=== PATIENT | female | born 1950 | race Caucasian/White ===

== ENCOUNTER → 2020-05-02 | Outpatient (CLI) | payer MEDICARE ==
[2020-05-02 15:53] LABS: BASOPHILS % (AUTO) 1 % (0-10); EOSINOPHILS # (AUTO) 0.2 10^3/uL (0.0-0.3); EOSINOPHILS % (AUTO) 3 % (0-10); HEMATOCRIT 40 % (35-52); HEMOGLOBIN 13.2 g/dL (11.5-16.0); LYMPHOCYTES # (AUTO) 1.4 10^3/uL (1.0-4.0); LYMPHOCYTES % (AUTO) 21 % (12-44); MEAN CORPUSCULAR HEMOGLOBIN 28 pg (25-34); MEAN CORPUSCULAR HGB CONC 33 g/dL (32-36); MEAN CORPUSCULAR VOLUME 85 fL (80-99); MEAN PLATELET VOLUME 9.5 fL (9.0-12.2); MONOCYTES # (AUTO) 0.8 10^3/uL (0.0-1.0); MONOCYTES % (AUTO) 12 % (0-12); NEUTROPHILS # (AUTO) 4.4 10^3/uL (1.8-7.8); NEUTROPHILS % (AUTO) 64 % (42-75); PLATELET COUNT 259 10^3/uL (130-400); WHITE BLOOD COUNT 6.9 10^3/uL (4.3-11.0)
--- NOTE | 2020-05-02 15:56 | Diagnostic Imaging Report ---
INDICATION: Weakness and cough. TIME OF EXAM: 3:46 PM. COMPARISON: No prior studies are available for comparison. FINDINGS: The heart size is normal. The lungs are clear. No infiltrates are detected. No effusion or pneumothorax is identified. IMPRESSION: No acute cardiopulmonary process is detected. Dictated by: Dictated on workstation # [id number]
[2020-05-02 16:05] LABS: ALBUMIN 3.9 GM/DL (3.2-4.5)
[2020-05-02 16:06] LABS: CHLORIDE 96 MMOL/L (98-107); SODIUM 131 MMOL/L (135-145)
[2020-05-02 16:07] LABS: CALCIUM 9.3 MG/DL (8.5-10.1)
[2020-05-02 16:08] LABS: GLUCOSE 103 MG/DL (70-105); TOTAL PROTEIN 8.1 GM/DL (6.4-8.2)
[2020-05-02 16:09] LABS: CARBON DIOXIDE 27 MMOL/L (21-32)
[2020-05-02 16:10] LABS: BILIRUBIN,TOTAL 0.4 MG/DL (0.1-1.0)
[2020-05-02 16:11] LABS: ALKALINE PHOSPHATASE 83 U/L (40-136)
[2020-05-02 16:12] LABS: CREATININE SERUM 0.71 MG/DL (0.60-1.30); GFR ESTIMATED > 60
[2020-05-02 16:13] LABS: BUN/CREATININE RATIO 18
[2020-05-02 16:15] LABS: ALANINE AMINOTRANSFERASE 19 U/L (0-55); URIC ACID 3.3 MG/DL (2.6-7.2)
[2020-05-02 16:29] LABS: ERYTHROCYTE SEDIMENTATION RATE 65 MM/HR (0-30)
[2020-05-02 16:36] LABS: FREE T4 (FREE THYROXINE) 1.27 NG/DL (0.70-1.48)
== END ==
LOC: LAB 15:11
PROVIDERS: ATTEND Family Medicine
DX: E03.9 Hypothyroidism, unspecified (principal); M85.80 Other specified disorders of bone density and structure, unspecified site; R51.9 Headache, unspecified; H57.89 Other specified disorders of eye and adnexa; B99.9 Unspecified infectious disease; R05 Cough
CPT/HCPCS: 36415; 71046; 80053; 82306; 82784; 82785; 82787; 84439; 84443; 84550; 85025; 85379; 85652; 86060; 86141; 86235; 86431

== ENCOUNTER 2020-05-16 17:05 | Emergency (ER) | payer MEDICARE, OTHER ==
[~2020-05-16] VITALS: Ht 160 cm; Wt 50.0 kg
--- NOTE | 2020-05-16 17:38 | ED General ---
General Chief Complaint: General Problems/Pain Stated Complaint: BILAT EYE SWELLING/HEADACHE X 1 WEEK Nursing Triage Note: PT ARRIVES TO ER WITH C/O SEVERE HEADACHE THAT WON'T GO AWAY WITH ANY MEDICATION PREVIOUSLY PERSCRIBED. PT STATES THE HEADACHE USUALLY STARTS IN HER NECK AND ENDS UP HURTING IN THE FRONT OF HER HEAD. Nursing Sepsis Screen: No Definite Risk Source of Information: Patient Exam Limitations: No Limitations History of Present Illness Date Seen by Provider: May 16, 2020 Time Seen by Provider: 17:32 Initial Comments To ER with bilateral eye swelling and headaches. The swelling is actually better today than it has been for the past few days but she's been having headaches global in nature for several weeks. She is tender to touch over the temporal region bilaterally. She had some transient loss of vision in the right eye a few weeks ago. She subsequent relief followed up with Dr. Guadalupe yesterday and was told everything looked normal she states. Her vision is now completely back to normal she states. She has also been seen by Dr. WEBBER and SANGITA Reynolds APRN out of a health clinic in [place]. Currently she is on Zofran, Imitrex, ketorolac prescribed last week for her headaches. She has had some intermittent headaches, swelling of the skin on her forehead, erythema of the cheeks since December of this year. Timing/Duration: Getting Worse, Intermittent Severity: Moderate Associated Systoms: Headaches, Nausea/Vomiting Allergies and Home Medications Allergies Coded Allergies: aspirin (Unverified Allergy, Intermediate, Vomiting, 05/16/20) codeine (Unverified Allergy, Intermediate, Vomiting, 05/16/20) Home Medications Hydroxychloroquine Sulfate 200 Mg Tablet, 200 MG PO DAILY Prescribed by: ADI BATES on 05/16/201916 Pantoprazole Sodium 40 Mg Tablet.dr, 40 MG PO DAILY Prescribed by: ADI BATES on 05/16/201916 Prednisone 10 Mg Tab.ds.pk, 10 MG PO DAILY Take 5 tabs(50mg)daily on day one,decrease by 1 tab(10MG)daily. Prescribed by: ADI BATES on 05/16/201916 Patient Home Medication List Home Medication List Reviewed: Yes Review of Systems Review of Systems Constitutional: see HPI EENTM: see HPI Respiratory: no symptoms reported Cardiovascular: no symptoms reported Genitourinary: no symptoms reported Musculoskeletal: no symptoms reported Skin: see HPI, rash Psychiatric/Neurological: No Symptoms Reported Hematologic/Lymphatic: No Symptoms Reported Past Ctursfp-Trblqf-Klosef Hx Patient Social History Recent Foreign Travel: No Contact w/Someone Who Travel: No Recent Infectious Disease Expo: No Physical Exam Vital Signs Vital Signs - First Documented 05/16/20 17:08 Temp 37.0 Pulse 93 Resp 17 B/P (MAP) 181/108 (132) Pulse Ox 98 O2 Delivery Room Air Capillary Refill : Less Than 3 Seconds Height, Weight, BMI Height: '" Weight: lbs. oz. kg; 19.00 BMI Method: General Appearance: No Apparent Distress, WD/WN Eyes: Bilateral Eye Normal Inspection, Bilateral Eye PERRL, Bilateral Eye EOMI HEENT: PERRL/EOMI, TMs Normal Respiratory: Lungs Clear, Normal Breath Sounds, No Accessory Muscle Use, No Respiratory Distress Cardiovascular: Regular Rate, Rhythm, Normal Peripheral Pulses Gastrointestinal: Non Tender, Soft Extremity: Normal Capillary Refill, Normal Inspection, Other (purplish discoloration of fingers consistent with raynauds. ) Neurologic/Psychiatric: Alert, Oriented x3 Skin: Normal Color, Warm/Dry, Other Progress/Results/Core Measures Suspected Sepsis Recent Fever Within 48 Hours: No Infection Criteria Present: None New/Unexplained Altered Menta: No Sepsis Screen: No Definite Risk SIRS Temperature: Pulse: 93 Respiratory Rate: 17 Laboratory Tests 05/16/20 17:40: White Blood Count 7.3 Blood Pressure 181 /108 Mean: 132 Laboratory Tests 05/16/20 17:40: Creatinine 0.67, Platelet Count 304, Total Bilirubin 0.5 Results/Orders Lab Results Laboratory Tests Test 05/16/20 17:40 Range/Units White Blood Count 7.3 4.3-11.0 10^3/uL Red Blood Count 4.86 3.80-5.11 10^6/uL Hemoglobin 13.4 11.5-16.0 g/dL Hematocrit 41 35-52 % Mean Corpuscular Volume 83 80-99 fL Mean Corpuscular Hemoglobin 28 25-34 pg Mean Corpuscular Hemoglobin Concent 33 32-36 g/dL Red Cell Distribution Width 13.4 10.0-14.5 % Platelet Count 304 130-400 10^3/uL Mean Platelet Volume 9.1 9.0-12.2 fL Immature Granulocyte % (Auto) 0 % Neutrophils (%) (Auto) 72 42-75 % Lymphocytes (%) (Auto) 15 12-44 % Monocytes (%) (Auto) 11 0-12 % Eosinophils (%) (Auto) 2 0-10 % Basophils (%) (Auto) 1 0-10 % Neutrophils # (Auto) 5.2 1.8-7.8 10^3/uL Lymphocytes # (Auto) 1.1 1.0-4.0 10^3/uL Monocytes # (Auto) 0.8 0.0-1.0 10^3/uL Eosinophils # (Auto) 0.1 0.0-0.3 10^3/uL Basophils # (Auto) 0.1 0.0-0.1 10^3/uL Immature Granulocyte # (Auto) 0.0 0.0-0.1 10^3/uL Erythrocyte Sedimentation Rate 70 H 0-30 MM/HR Sodium Level 127 L 135-145 MMOL/L Potassium Level 4.4 3.6-5.0 MMOL/L Chloride Level 91 L 98-107 MMOL/L Carbon Dioxide Level 24 21-32 MMOL/L Anion Gap 12 5-14 MMOL/L Blood Urea Nitrogen 10 7-18 MG/DL Creatinine 0.67 0.60-1.30 MG/DL Estimat Glomerular Filtration Rate > 60 BUN/Creatinine Ratio 15 Glucose Level 104 70-105 MG/DL Calcium Level 9.4 8.5-10.1 MG/DL Corrected Calcium 9.6 8.5-10.1 MG/DL Total Bilirubin 0.5 0.1-1.0 MG/DL Aspartate Amino Transf (AST/SGOT) 37 H 5-34 U/L Alanine Aminotransferase (ALT/SGPT) 22 0-55 U/L Alkaline Phosphatase 80 40-136 U/L C-Reactive Protein High Sensitivity 6.91 H 0.00-0.50 MG/DL Total Protein 8.0 6.4-8.2 GM/DL Albumin 3.8 3.2-4.5 GM/DL My Orders Orders - ADI BATES APRN Erythrocyte Sedimentation Rate (05/16/20 17:30) Hs C Reactive Protein (05/16/20 17:30) Cbc With Automated Diff (05/16/20 17:30) Comprehensive Metabolic Panel (05/16/20 17:30) Prednisone Tablet (Deltasone Tablet) (05/16/20 18:00) Ct Head Wo (05/16/20 18:28) Ketorolac Injection (Toradol Injection) (05/16/20 18:30) Ns Iv 1000 Ml (Sodium Chloride 0.9%) (05/16/20 18:30) Prochlorperazine Injection (Compazine In (05/16/20 18:30) Diphenhydramine Injection (Benadryl Inje (05/16/20 18:30) Medications Given in ED Current Medications Medications Dose Ordered Sig/Kim Route Start Time Stop Time Status Last Admin Dose Admin Diphenhydramine HCl 25 mg ONCE ONCE IVP 05/16/20 18:30 05/16/20 18:31 DC 05/16/20 18:33 25 MG Ketorolac Tromethamine 15 mg ONCE ONCE IVP 05/16/20 18:30 05/16/20 18:31 DC 05/16/20 18:34 15 MG Prednisone 50 mg ONCE ONCE PO 05/16/20 18:00 05/16/20 18:01 DC 05/16/20 19:28 50 MG Prochlorperazine Edisylate 5 mg ONCE ONCE IV 05/16/20 18:30 05/16/20 18:31 DC 05/16/20 18:34 5 MG Vital Signs/I&O 05/16/20 17:08 Temp 37.0 Pulse 93 Resp 17 B/P (MAP) 181/108 (132) Pulse Ox 98 O2 Delivery Room Air Capillary Refill : Less Than 3 Seconds Blood Pressure Mean: 132 Departure Impression Primary Impression: SLE (systemic lupus erythematosus) Additional Impression: Temporal arteritis Disposition: HOME, SELF-CARE Condition: Stable Departure-Patient Inst. Decision time for Depature: 18:00 Referrals: NO,LOCAL PHYSICIAN (PCP/Family) Primary Care Physician Patient Instructions: Lupus, Vasculitis (DC) Add. Discharge Instructions: 1. I am convinced that she have lupus. You need to see a government gauger to further evaluate this and evaluate for other possible causes. I have listed the number and name of the rheumatology clinic below. In the meantime you need a couple of days of steroids to start reducing the inflammation. We need to use some acid reducers in order to protect your stomach because the prednisone can upset your stomach. I will also start you on a medicine called Plaquenil which needs to be taken as directed. Return to ER for any loss of vision, worsening pain or any other concerns. [facility] Address: [address] [address] All discharge instructions reviewed with patient and/or family. Voiced understanding. Scripts Hydroxychloroquine Sulfate (Plaquenil) 200 Mg Tablet 200 MG PO DAILY, #30 TAB Prov: ADI BATES APRN 05/16/20 Prednisone (Prednisone) 10 Mg Tab.ds.pk 10 MG PO DAILY, #15 EA Take 5 tabs(50mg)daily on day one,decrease by 1 tab(10MG)daily. Prov: ADI BATES APRN 05/16/20 Pantoprazole Sodium (Protonix) 40 Mg Tablet. 40 MG PO DAILY, #20 TAB Prov: ADI BATES APRN 05/16/20 Copy Copies To 1: KATLYN WEBBER PETER J APRN May 16, 2020 17:38
[2020-05-16 17:48] LABS: BASOPHILS # (AUTO) 0.1 10^3/uL (0.0-0.1); BASOPHILS % (AUTO) 1 % (0-10); EOSINOPHILS # (AUTO) 0.1 10^3/uL (0.0-0.3); EOSINOPHILS % (AUTO) 2 % (0-10); HEMATOCRIT 41 % (35-52); HEMOGLOBIN 13.4 g/dL (11.5-16.0); LYMPHOCYTES # (AUTO) 1.1 10^3/uL (1.0-4.0); LYMPHOCYTES % (AUTO) 15 % (12-44); MEAN CORPUSCULAR HEMOGLOBIN 28 pg (25-34); MEAN CORPUSCULAR HGB CONC 33 g/dL (32-36); MEAN CORPUSCULAR VOLUME 83 fL (80-99); MEAN PLATELET VOLUME 9.1 fL (9.0-12.2); MONOCYTES # (AUTO) 0.8 10^3/uL (0.0-1.0); MONOCYTES % (AUTO) 11 % (0-12); NEUTROPHILS # (AUTO) 5.2 10^3/uL (1.8-7.8); NEUTROPHILS % (AUTO) 72 % (42-75); PLATELET COUNT 304 10^3/uL (130-400); WHITE BLOOD COUNT 7.3 10^3/uL (4.3-11.0)
[2020-05-16 17:58] LABS: ALBUMIN 3.8 GM/DL (3.2-4.5); CHLORIDE 91 MMOL/L (98-107); POTASSIUM 4.4 MMOL/L (3.6-5.0); SODIUM 127 MMOL/L (135-145)
[2020-05-16 17:59] LABS: CALCIUM 9.4 MG/DL (8.5-10.1)
[2020-05-16] MEDS ORDERED: predniSONE 20 MG TAB PO ONE (18:00)
[2020-05-16 18:01] LABS: GLUCOSE 104 MG/DL (70-105)
[2020-05-16 18:02] LABS: CARBON DIOXIDE 24 MMOL/L (21-32)
[2020-05-16 18:03] LABS: BILIRUBIN,TOTAL 0.5 MG/DL (0.1-1.0)
[2020-05-16 18:04] LABS: ALKALINE PHOSPHATASE 80 U/L (40-136); CREATININE SERUM 0.67 MG/DL (0.60-1.30); GFR ESTIMATED > 60
[2020-05-16 18:05] LABS: BUN/CREATININE RATIO 15
[2020-05-16 18:07] LABS: ALANINE AMINOTRANSFERASE 22 U/L (0-55)
[2020-05-16] MEDS ORDERED: PROCHLORPERAZINE 10 MG/2ML INJ (COMPAZINE) IV ONE (18:30)
[2020-05-16] MEDS ORDERED: NS IV 1000 ML 1,000 ML IV SCH (18:30)
[2020-05-16] MEDS ORDERED: KETOROLAC 30 MG/ML VIAL IVP ONE (18:30)
[2020-05-16] MEDS ORDERED: diphenhydrAMINE 50 MG/ML INJ (BENADRYL) IVP ONE (18:30)
[2020-05-16 19:00] LABS: ERYTHROCYTE SEDIMENTATION RATE 70 MM/HR (0-30)
--- NOTE | 2020-05-16 19:01 | Diagnostic Imaging Report ---
PROCEDURE: CT head without contrast. TECHNIQUE: Multiple contiguous axial images were obtained through the brain without the use of intravenous contrast. Auto Exposure Controls were utilized during the CT exam to meet ALARA standards for radiation dose reduction. INDICATION: Severe refractory headache The ventricles are normal in size, shape and position. There are no masses or hemorrhages. There are no extra-axial fluid collections. Paranasal sinuses are clear. IMPRESSION: Negative CT head Dictated by: Dictated on workstation # [id number]
[2020-05-16] MEDS ORDERED: PRED10TA22 PO (19:17)
[2020-05-16] MEDS ORDERED: HYDR200T78 PO (19:17)
[2020-05-16] MEDS ORDERED: PANT40TA2 PO (19:17)
[2020-05-16 19:30] VITALS: BP 150/73
== END 2020-05-16 19:30 ==
LOC: EDUNIT# 17:05 → ER 17:07
DX: M32.9 Systemic lupus erythematosus, unspecified (principal); M31.6 Other giant cell arteritis; Z88.5 Allergy status to narcotic agent; Z88.8 Allergy status to other drugs, medicaments and biological substances; Z79.52 Long term (current) use of systemic steroids
CPT/HCPCS: 36415; 70450; 80053; 85025; 85652; 86141

== ENCOUNTER → 2020-05-31 | Outpatient (CLI) | payer MEDICARE, OTHER ==
[~2020-05-31] MED LIST: HYDR200T78 PO; PANT40TA2 PO; PRED10TA22 PO
[2020-05-31 08:10] LABS: MEAN PLATELET VOLUME 9.6 fL (9.0-12.2); WHITE BLOOD COUNT 9.7 10^3/uL (4.3-11.0)
[2020-05-31 08:27] LABS: ALANINE AMINOTRANSFERASE 19 U/L (0-55); ALKALINE PHOSPHATASE 89 U/L (40-136); BILIRUBIN,TOTAL 0.5 MG/DL (0.1-1.0); BUN/CREATININE RATIO 16; CALCIUM 9.8 MG/DL (8.5-10.1); CARBON DIOXIDE 26 MMOL/L (21-32); CHLORIDE 96 MMOL/L (98-107); CREATININE SERUM 0.76 MG/DL (0.60-1.30); GFR ESTIMATED > 60; GLUCOSE 92 MG/DL (70-105); POTASSIUM 4.4 MMOL/L (3.6-5.0); SODIUM 134 MMOL/L (135-145); TOTAL PROTEIN 8.3 GM/DL (6.4-8.2)
== END ==
LOC: LAB 07:39
PROVIDERS: ATTEND Internal Medicine
DX: M32.9 Systemic lupus erythematosus, unspecified (principal); M25.50 Pain in unspecified joint; D64.9 Anemia, unspecified; R10.9 Unspecified abdominal pain
CPT/HCPCS: 36415; 80053; 82607; 82728; 83540; 85027; 85652; 86038; 86039; 86141; 86200; 86431

== ENCOUNTER 2020-06-08 15:27 | Outpatient (RCR) | payer MEDICARE, OTHER ==
[2020-06-09] MEDS ORDERED: LEVO100T7 PO (13:06)
[2020-06-09] MEDS ORDERED: CYCL1DRO OP (13:06)
== END 2020-09-06 ==
LOC: PREOP 15:27
PROVIDERS: ATTEND Surgery
DX: Z01.812 Encounter for preprocedural laboratory examination (principal); M19.09 Primary osteoarthritis, other specified site; Z20.822 Contact with and (suspected) exposure to COVID-19

== ENCOUNTER 2020-06-09 12:30 | Day surgery (SDC) | payer MEDICARE, OTHER ==
[2020-06-09] VITALS (11 sets, daily range): BP systolic 109–136; BP diastolic 57–83
[~2020-06-09] VITALS: Ht 162 cm; Wt 54.1 kg
[~2020-06-09 12:30] MED LIST changes: +ceFAZolin INJECTION 1,000 MG in WATER (STERILE) FOR INJECTION 10 ML IV ONE
[2020-06-09] MEDS ORDERED: LIDOCAINE PF 2% 5 ML (XYLOCAINE) VIAL ONE (12:53)
[2020-06-09] MEDS ORDERED: ONDANSETRON 4 MG/2 ML (SDV) Z0FRAN ONE (12:53)
[2020-06-09] MEDS ORDERED: SEVOFLURANE (ULTANE) 15 ML INHAL SOLN ONE ×5 (12:53→14:49)
[2020-06-09] MEDS ORDERED: proPOfol 200 MG/20 ML (DIPRIVAN) VIAL IV ONE (12:53)
[2020-06-09] MEDS ORDERED: fentaNYL INJECTION 100 MCG/2 ML AMP ONE (12:54)
[2020-06-09] MEDS ORDERED: MIDAZOLAM 2 MG/2 ML (VERSED) VIAL ONE (12:54)
[2020-06-09] MEDS ORDERED: LACTATED RINGERS 1,000 ML IV PRN (12:57)
[2020-06-09] MEDS ORDERED: LIDOCAINE/EPI 1%-1:200,000 (XYLOCAINE) 30 ML VIAL ONE (13:01)
[2020-06-09] MEDS ORDERED: LEVO100T7 PO (13:06)
[2020-06-09] MEDS ORDERED: CYCL1DRO OP (13:06)
[2020-06-09] MEDS ORDERED: ceFAZolin INJECTION 0 MG ONE (13:28)
[2020-06-09] MEDS ORDERED: WATER (STERILE) FOR INJECTION 10 ML ONE (13:29)
[2020-06-09] MEDS ORDERED: ceFAZolin INJECTION 1,000 MG ONE (13:29)
[2020-06-09] MEDS ORDERED: NEO/POLY/BAC (NEOSPORIN) OINT 15 GM TUBE ONE (14:58)
[2020-06-09] MEDS ORDERED: PHENYLEPHRINE 100 MCG/ML 10 ML (ANESTHESIA) SYR ONE (14:59)
[2020-06-09] MEDS ORDERED: morphine INJ 10 MG/ML 1ML (SYR OR VIAL) IVP ONE (15:15)
[2020-06-09] MEDS ORDERED: MEPERIDINE (DEMEROL) INJ 50 MG/ML IVP ONE (15:15)
[2020-06-09] MEDS ORDERED: ONDANSETRON 4 MG/2 ML (SDV) Z0FRAN IVP PRN (15:15)
--- NOTE | 2020-06-10 00:45 | OPERATIVE REPORT ---
DATE OF SERVICE: 06/09/2020 PREOPERATIVE DIAGNOSIS: Temporal arteritis. POSTOPERATIVE DIAGNOSIS: Temporal arteritis. PROCEDURE: Left temporal artery biopsy. SURGEON: Peyton Helm DO ANESTHESIA: General. ESTIMATED BLOOD LOSS: Minimal. COMPLICATIONS: None. INDICATIONS: The patient is a 70-year-old female who has been requested for me to perform a temporal artery biopsy. She understands the risks and benefits of procedure and wished to proceed with procedure. Consent was signed in the chart. DESCRIPTION OF PROCEDURE: The patient was taken to the operating suite. She was prepped and draped in sterile fashion. Timeout was performed. Doppler was used to assist locating the artery. A 15-blade scalpel was used to make a small skin incision just anterior to the left ear over the area that had arterial Doppler. Dissection was taken down to the subcutaneous tissues where a small artery was located and was able to be dissected around. Using 3-0 silk ties, the ends were tied off and a segment was transected for specimen. The wound was then irrigated with copious amounts of irrigation and the skin was then closed using 5-0 Prolene in simple interrupted fashion. The patient tolerated procedure well without any complications. She was taken to recovery room in stable condition. Job ID: [id number] DocumentID: [id number] Dictated Date: 06/09/2020 20:15:09 Supplier Manager Date: 06/10/2020 00:44:43 Dictated By: PEYTON HELM DO [facility]
--- NOTE | 2020-06-14 06:47 | Anesthesia-General Post-Op ---
General Significant Intra-Op Events Notes late Entry: Post op on 06/09@ 1530 Patient Condition Mental Status/LOC: Same as Preop Cardiovascular: Satisfactory Nausea/Vomiting: Absent Respiratory: Satisfactory Pain: Controlled Complications: Absent Post Op Complications Complications None Follow Up Care/Instructions Patient Instructions None needed. Anesthesia/Patient Condition Patient Condition Patient is doing well, no complaints, stable vital signs, no apparent adverse anesthesia problems. No complications reported per nursing. RADHA WILLIAMSON CRNA Jun 14, 2020 06:47
== END 2020-06-09 17:18 ==
LOC: SDC 12:30
PROVIDERS: ATTEND Surgery
DX: M31.6 Other giant cell arteritis (principal); I77.89 Other specified disorders of arteries and arterioles; K21.9 Gastro-esophageal reflux disease without esophagitis; G43.909 Migraine, unspecified, not intractable, without status migrainosus; E03.9 Hypothyroidism, unspecified; Z79.899 Other long term (current) drug therapy; Z88.5 Allergy status to narcotic agent; Z20.828 Contact with and (suspected) exposure to other viral communicable diseases
CPT/HCPCS: 37609; 87081; U0002; 87635

== ENCOUNTER 2022-07-11 08:40 | Emergency (ER) | payer MEDICARE, OTHER ==
[~2022-07-11 08:40] MED LIST changes: +CYCL1DRO OP; +LEVO100T7 PO; -ceFAZolin INJECTION 1,000 MG in WATER (STERILE) FOR INJECTION 10 ML IV ONE
[2022-07-11 09:35] LABS: BASOPHILS % (AUTO) 0 % (0-10); EOSINOPHILS % (AUTO) 0 % (0-10); HEMATOCRIT 36 % (35-52); HEMOGLOBIN 11.4 g/dL (11.5-16.0); LYMPHOCYTES # (AUTO) 0.9 10^3/uL (1.0-4.0); LYMPHOCYTES % (AUTO) 23 % (12-44); MEAN CORPUSCULAR HEMOGLOBIN 25 pg (25-34); MEAN CORPUSCULAR HGB CONC 32 g/dL (32-36); MEAN CORPUSCULAR VOLUME 78 fL (80-99); MEAN PLATELET VOLUME 9.3 fL (9.0-12.2); MONOCYTES # (AUTO) 0.5 10^3/uL (0.0-1.0); MONOCYTES % (AUTO) 12 % (0-12); NEUTROPHILS # (AUTO) 2.5 10^3/uL (1.8-7.8); NEUTROPHILS % (AUTO) 64 % (42-75); PLATELET COUNT 196 10^3/uL (130-400); WHITE BLOOD COUNT 3.9 10^3/uL (4.3-11.0)
--- NOTE | 2022-07-11 09:39 | ED General ---
General Chief Complaint: Trauma-Non Activation Stated Complaint: FALL Nursing Triage Note: PT TO RM 7 WITH FAMILY WITH C/O FALL AROUND 0330 THIS AM. PT STATES SHE FELT FAINT BEFORE SHE FELL. PT C/O RIB PAIN AND SAID SHE FELL ONTO L HIP BUT DENIES PAIN THERE AT THIS TIME Source of Information: Patient, Family Exam Limitations: No Limitations History of Present Illness Date Seen by Provider: Jul 11, 2022 Time Seen by Provider: 09:22 Initial Comments Patient is a 72-year-old female with history of thyroid disease temporal arteritis on daily prednisone who presents to the emergency room with a chief complaint of fall with a syncopal episode. Patient states that she fell onto her kitchen counter and then onto the floor. She hit her left lower ribs on the counter. She has a significant amount of discomfort with movement in the left lower ribs. She did take some Tylenol around 730. She relates a history of multiple falls over the last 6 months or so similar to this. She can be doing anything when she is standing upright and suddenly will drop to the ground. She denies any symptoms but states that she can "tell" when it is going to happen because she develops a little ringing in her ears. She denies vision change/"tunnel vision". No sweating, nausea, spinning sensation. No chest pain/palpitations or shortness of breath. No numbness or tingling in her extremities. The episode this morning occurred at about 3:30 in the morning. She had back surgery at the beginning of the year followed by hip surgery in September. She has had a slow process of healing. She is quite active and works at one of the [employer]. She still works Friday through Friday. She has had episodes at work. She has not missed or skipped any of her routine medications. She states that she has been walking into doors and ruby and feels like her coordination is off. No headache. No speech difficulty, no unilateral weakness numbness or tingling. All other review of systems reviewed and negative except as stated Timing/Duration: 4-6 Hours, Other (6 months) Associated Systoms: Denies Symptoms, Other (rib pain on the left) Allergies and Home Medications Allergies Coded Allergies: aspirin (Verified Allergy, Intermediate, Vomiting, 06/09/20) codeine (Verified Allergy, Intermediate, Vomiting, 06/09/20) Patient Home Medication List Home Medication List Reviewed: Yes Cyclosporine (Restasis) 1 Each Droperette, 1 EACH OP, (Reported) Entered as Reported by: BIANKA MIRELES on 06/09/20 130 Hydroxychloroquine Sulfate (Plaquenil) 200 Mg Tablet, 200 MG PO DAILY Prescribed by: ADI BATES on 05/16/201916 Levothyroxine Sodium (Levothyroxine Sodium) 100 Mcg Tablet, 100 MCG PO, (Reported) Entered as Reported by: BIANKA MIRELES on 06/09/20 130 Pantoprazole Sodium (Protonix) 40 Mg Tablet.dr, 40 MG PO DAILY Prescribed by: ADI BATES on 05/16/201916 Prednisone (Prednisone) 10 Mg Tab.ds.pk, 10 MG PO DAILY Prescribed by: ADI BATES on 05/16/201916 Review of Systems Review of Systems Constitutional: see HPI EENTM: no symptoms reported Respiratory: no symptoms reported, other (left lower rib pain) Cardiovascular: no symptoms reported Gastrointestinal: no symptoms reported Genitourinary: no symptoms reported Musculoskeletal: no symptoms reported Skin: no symptoms reported Psychiatric/Neurological: Other (syncopal episode) All Other Systems Reviewed Negative Unless Noted: Yes Past Bdrtlpp-Jnqqgd-Hfpiju Hx Patient Social History Tobacco Use?: No Use of E-Cig and/or Vaping dev: No Substance use?: No Alcohol Use?: No Pt feels they are or have been: No Immunizations Up To Date Tetanus Booster (TDap): More than 5yrs PED Vaccines UTD: Yes Influenza Vaccine Up-to-Date: No; Not Current Seasonal Allergies Seasonal Allergies: No Past Medical History Surgery/Hospitalization HX: BACK SURGERIES, R HIP REPLACEMENT Surgeries: Yes Eye Surgery Respiratory: No Cardiac: No Neurological: No Genitourinary: No Gastrointestinal: No Musculoskeletal: No Hypothyroidsim HEENT: Yes (SEVERE DRY EYE) Cataract Psychosocial: No Recent Skin Changes Physical Exam Vital Signs Vital Signs - First Documented 07/11/22 08:50 Temp 36.0 Pulse 76 Resp 16 Capillary Refill : Height, Weight, BMI Height: '" Weight: lbs. oz. kg; 20.61 BMI Method: General Appearance: No Apparent Distress, WD/WN, Thin Eyes: Bilateral Eye Normal Inspection, Bilateral Eye PERRL, Bilateral Eye EOMI HEENT: Normal ENT Inspection, Pharynx Normal Neck: Full Range of Motion, Normal Inspection, Non Tender Respiratory: Lungs Clear, Normal Breath Sounds, No Accessory Muscle Use, No Respiratory Distress, Other (tenderness to anterior left lower ribs - very slight overlying bruis (small) developing) Cardiovascular: Regular Rate, Rhythm, Normal Peripheral Pulses Gastrointestinal: Non Tender, Soft Extremity: Normal Capillary Refill, Normal Inspection, Normal Range of Motion Neurologic/Psychiatric: Alert, Oriented x3, No Motor/Sensory Deficits, Normal Mood/Affect; No Abnormal Cerebellar Tests; Other (normal finger to nose (slow); neg Romberg; no drift. physiologic strength equal bilaterally) Progress/Results/Core Measures Suspected Sepsis SIRS Temperature: Pulse: 76 Respiratory Rate: 16 Laboratory Tests 07/11/22 09:25: White Blood Count 3.9L Blood Pressure / Mean: Laboratory Tests 07/11/22 09:25: Creatinine 0.64, Platelet Count 196, Total Bilirubin 0.3 Results/Orders Lab Results Laboratory Tests Test 07/11/22 09:25 Range/Units White Blood Count 3.9 L 4.3-11.0 10^3/uL Red Blood Count 4.58 3.80-5.11 10^6/uL Hemoglobin 11.4 L 11.5-16.0 g/dL Hematocrit 36 35-52 % Mean Corpuscular Volume 78 L 80-99 fL Mean Corpuscular Hemoglobin 25 25-34 pg Mean Corpuscular Hemoglobin Concent 32 32-36 g/dL Red Cell Distribution Width 16.2 H 10.0-14.5 % Platelet Count 196 130-400 10^3/uL Mean Platelet Volume 9.3 9.0-12.2 fL Immature Granulocyte % (Auto) 1 % Neutrophils (%) (Auto) 64 42-75 % Lymphocytes (%) (Auto) 23 12-44 % Monocytes (%) (Auto) 12 0-12 % Eosinophils (%) (Auto) 0 0-10 % Basophils (%) (Auto) 0 0-10 % Neutrophils # (Auto) 2.5 1.8-7.8 10^3/uL Lymphocytes # (Auto) 0.9 L 1.0-4.0 10^3/uL Monocytes # (Auto) 0.5 0.0-1.0 10^3/uL Eosinophils # (Auto) 0.0 0.0-0.3 10^3/uL Basophils # (Auto) 0.0 0.0-0.1 10^3/uL Immature Granulocyte # (Auto) 0.0 0.0-0.1 10^3/uL Sodium Level 132 L 135-145 MMOL/L Potassium Level 3.9 3.6-5.0 MMOL/L Chloride Level 98 98-107 MMOL/L Carbon Dioxide Level 25 21-32 MMOL/L Anion Gap 9 5-14 MMOL/L Blood Urea Nitrogen 11 7-18 MG/DL Creatinine 0.64 0.60-1.30 MG/DL Estimat Glomerular Filtration Rate 93 BUN/Creatinine Ratio 17 Glucose Level 96 70-105 MG/DL Calcium Level 8.8 8.5-10.1 MG/DL Corrected Calcium 9.4 8.5-10.1 MG/DL Total Bilirubin 0.3 0.1-1.0 MG/DL Aspartate Amino Transf (AST/SGOT) 36 H 5-34 U/L Alanine Aminotransferase (ALT/SGPT) 23 0-55 U/L Alkaline Phosphatase 55 40-136 U/L Total Protein 6.8 6.4-8.2 GM/DL Albumin 3.3 3.2-4.5 GM/DL Thyroid Stimulating Hormone (TSH) 1.40 0.35-4.94 UIU/ML My Orders Orders - JACQUELINE ESTRADA MD Ed Iv/Invasive Line Start (07/11/22 09:23) Cbc With Automated Diff (07/11/22 09:23) Comprehensive Metabolic Panel (07/11/22 09:23) Thyroid Stimulating Hormone (07/11/22 09:23) Ekg Tracing (07/11/22 09:23) Chest 1 View, Ap/Pa Only (07/11/22 09:23) Pantoprazole Injection (Protonix Injecti (07/11/22 10:30) Ketorolac Injection (Toradol Injection) (07/11/22 10:30) Medications Given in ED Vital Signs/I&O 07/11/22 08:50 Temp 36.0 Pulse 76 Resp 16 B/P (MAP) Capillary Refill : Progress Note : Time: 11:15 Progress Note Patient seen and examined, 72-year-old with recurrent syncopal/drop attacks over the last 6 months. Neurologic exam is nonfocal. Basic labs, EKG and chest x- ray unremarkable. She has follow-up scheduled in the next week with her primary care physician. I have touched base with Dr. Deluna to let her know that the patient was here and that I plan on setting her up for an outpatient Holter monitor. Her vital signs have been stable. She feels back to baseline. Consideration for CT scan of the head without contrast however HPI and physical exam do not really support the need. She might benefit from outpatient echo and carotids, possibly MRI brain. Low clinical suspicion for mass lesion on the brain. I have advised the patient and her daughter who is at the bedside the plan of care, they are comfortable. All questions are sought and answered. Patient is stable for discharge. ECG Initial ECG Impression Date: Jul 11, 2022 Initial ECG Impression Time: 09:35 Initial ECG Rate: 70 Initial ECG Rhythm: Normal Sinus Initial ECG Intervals: Normal Initial ECG Impression: Normal Diagnostic Imaging Diagonstic Imaging: Xray Plain Films/CT/US/NM/MRI: chest Comments [facility], [place] NAME: INGRID KLEIN [facility] REC#: [id number] PT STATUS: REG ER : 1950 PHYSICIAN: JACQUELINE ESTRADA MD ADMIT DATE: 07/11/22/ER Signed Date of Exam:07/11/22 CHEST 1 VIEW, AP/PA ONLY EXAMINATION: Chest 1 view HISTORY: left lower rib pain after fall COMPARISON: None available. FINDINGS: Heart size and pulmonary vasculature are normal. The lungs are clear without consolidation, pleural effusion, or pneumothorax. The osseous structures are intact. IMPRESSION: 1. No acute radiographic abnormality in the chest. Dictated by: Dictated on workstation # [id number] Dict: 07/11/22954 Trans: 07/11/22957 [facility] [id number] Interpreted by: RU HUDSON DO Electronically signed by: RU HUDSON DO 07/11/22957 Departure Impression Primary Impression: Syncope and collapse Additional Impression: Contusion of rib on left side Qualified Codes: S20.212A - Contusion of left front wall of thorax, initial encounter Disposition: 01 HOME, SELF-CARE Condition: Stable Departure-Patient Inst. Decision time for Depature: 11:17 Referrals: MAYRA DELUNA DO (PCP/Family) Primary Care Physician Patient Instructions: Syncope (Fainting) Add. Discharge Instructions: Continue your current medications as prescribed. If you feel 1 of these attacks coming on please try to either immediately sit down or lay down. Monitor your symptoms for palpitations/rapid heartbeat or feeling a very slow heartbeat, nausea, sweating and/or "tunnel vision". Drink plenty of fluids to stay well-hydrated. Return to the emergency department for any new, concerning or emergent complaints. Please be sure and keep your appointment with Dr. Deluna next week. I have sent an order for an outpatient "Holter monitor" to be placed to monitor your heart rhythm. Work/School Note: Work Release Form Date Seen in the Emergency Department: Jul 11, 2022 Return to Work: Jul 15, 2022 Copy Copies To 1: MAYRA DELUNA KATHRYN M MD Jul 11, 2022 09:39
[2022-07-11 09:49] LABS: ALBUMIN 3.3 GM/DL (3.2-4.5); POTASSIUM 3.9 MMOL/L (3.6-5.0)
[2022-07-11 09:50] LABS: CALCIUM 8.8 MG/DL (8.5-10.1)
[2022-07-11 09:51] LABS: TOTAL PROTEIN 6.8 GM/DL (6.4-8.2)
[2022-07-11 09:53] LABS: BILIRUBIN,TOTAL 0.3 MG/DL (0.1-1.0)
[2022-07-11 09:55] LABS: CREATININE SERUM 0.64 MG/DL (0.60-1.30)
--- NOTE | 2022-07-11 09:57 | Diagnostic Imaging Report ---
EXAMINATION: Chest 1 view HISTORY: left lower rib pain after fall COMPARISON: None available. FINDINGS: Heart size and pulmonary vasculature are normal. The lungs are clear without consolidation, pleural effusion, or pneumothorax. The osseous structures are intact. IMPRESSION: 1. No acute radiographic abnormality in the chest. Dictated by: Dictated on workstation # [id number]
[2022-07-11] MEDS ORDERED: PANTOPRAZOLE 40 MG (PROTONIX) VIAL IV ONE (10:30)
[2022-07-11] MEDS ORDERED: KETOROLAC 15 MG/ML VIAL IVP ONE (10:30)
== END 2022-07-11 11:30 | disposition home or self-care (01) ==
LOC: EDUNIT# 08:40 → ER 08:44
DX: S20.212A Contusion of left front wall of thorax, initial encounter (principal); R55 Syncope and collapse; M31.6 Other giant cell arteritis; Z88.6 Allergy status to analgesic agent; Z28.310 Unvaccinated for COVID-19; Z79.52 Long term (current) use of systemic steroids; W18.30XA Fall on same level, unspecified, initial encounter; W22.8XXA Striking against or struck by other objects, initial encounter; Y92.000 Kitchen of unspecified non-institutional (private) residence as the place of occurrence of the external cause
CPT/HCPCS: 36415; 71045; 80053; 84443; 85025; 93005

== ENCOUNTER → 2022-07-24 | Outpatient (CLI) | payer MEDICARE, OTHER | LOC: CARD 08:00 | PROVIDERS: ATTEND Internal Medicine | DX: R55 Syncope and collapse (principal) | CPT/HCPCS: 93246 ==